=== PATIENT | female | born 1985 | race African-American/Black ===

== ENCOUNTER 2018-03-07 14:25 | Emergency (ER) | payer BC ==
[~2018-03-07] VITALS: Ht 167.6 cm; Wt 82.4 kg
[2018-03-07 14:25] VITALS: BP 161/82
[2018-03-07] MEDS ORDERED: SULF1TAB24 PO (14:52)
[2018-03-07] MEDS ORDERED: SMZ/TMP 800/160MG TABLET. PO ONE (15:00)
[2018-03-07] MEDS ORDERED: CLINDAMYCIN HCL 150 MG CAPSULE PO ONE (15:00)
--- NOTE | 2018-03-07 15:03 | ED.ADGEN ---
Past History Past Medical History: Diabetes Past Surgical History: No Surgical History Alcohol Use: None Drug Use: None Adult General Chief Complaint Chief Complaint Skin rash to suprapubic region [facility] HPI Patient is a 32-year-old -[place] female who presents with rash to suprapubic region. Patient states rash began as an ingrown hair 3 days ago. Patient reports tenderness redness to this region. No fever chills, nausea vomiting or sweats. On exam, there is erythematous rash over suprapubic region with induration towards the right inguinal fold that is moderately tender. There is no fluctuance or pointing or drainage. There is no streaking or labial involvement. [] Review of Systems Review of Systems ROS as per HPI All other systems were reviewed and found to be within normal limits, except as documented in this note. Current Medications Current Medications Current Medications Medications (Trade) Dose Ordered Sig/Cecilia Start Time Stop Time Status Last Admin Dose Admin Clindamycin HCl (Cleocin) 300 mg 1X ONCE 03/07/18 15:00 03/07/18 15:00 DC Trimethoprim/ Sulfamethoxazole (Bactrim Ds) 1 tab 1X ONCE 03/07/18 15:00 03/07/18 15:01 UNV Allergies Allergies Allergies Coded Allergies Type Severity Reaction Last Updated Verified No Known Drug Allergies 03/07/18 No Physical Exam Physical Exam Constitutional: Well developed, well nourished, no acute distress, non-toxic appearance. [] HENT: Normocephalic, atraumatic, bilateral external ears normal, oropharynx moist, no oral exudates, nose normal. [] Eyes: PERRLA, EOMI, conjunctiva normal, no discharge. [] Neck: Normal range of motion, no tenderness, supple, no stridor. [] Cardiovascular:Heart rate regular rhythm, no murmur [] Lungs & Thorax: Bilateral breath sounds clear to auscultation [] Skin: ere is erythematous rash over suprapubic region with induration towards the right inguinal fold that is moderately tender. There is no fluctuance or pointing or drainage. There is no streaking or labial involvement. [] Neurologic: Alert and oriented X 3, normal motor function, normal sensory function, no focal deficits noted. [] Psychologic: Affect normal, judgement normal, mood normal. [] Current Patient Data Vital Signs Vital Signs Date Time Temp Pulse Resp B/P (MAP) Pulse Ox O2 Delivery O2 Flow Rate FiO2 03/07/18 14:25 98.3 80 16 100 Room Air EKG EKG [] Radiology/Procedures Radiology/Procedures [] Course & Med Decision Making Course & Med Decision Making Pertinent Labs and Imaging studies reviewed. (See chart for details) [First dose of antibiotics given in the emergency department. Exam consistent with submerge to be cellulitis with early soft tissue abscess. Recommend warm compresses watchful waiting and close follow-up in the emergency department one to 2 days for recheck. Patient instructed to return sooner symptoms worsen. Patient verbalizes understanding agreement discharge instructions.] Final Impression Final Impression [1. Cellulitis of suprapubic region Dragon Disclaimer Dragon Disclaimer This electronic medical record was generated, in whole or in part, using a voice recognition dictation system. LISE BOCANEGRA DO Mar 07, 2018 15:03
== END 2018-03-07 15:00 | disposition home or self-care (01) ==
LOC: ER 14:25
DX: L03.311 Cellulitis of abdominal wall (principal); L02.211 Cutaneous abscess of abdominal wall; E11.9 Type 2 diabetes mellitus without complications
CPT/HCPCS: 99283

== ENCOUNTER 2018-03-10 16:29 | Emergency (ER) | payer BC ==
[~2018-03-10] VITALS: Ht 167.6 cm; Wt 81.6 kg
[~2018-03-10 16:29] MED LIST: SULF1TAB24 PO
[2018-03-10 16:44] VITALS: BP 121/86
--- NOTE | 2018-03-10 17:14 | ED.ADGEN ---
Past History Past Medical History: Diabetes (YUKO YANG MD) Past Surgical History: No Surgical History (YUKO YANG MD) Alcohol Use: None Drug Use: None (YUKO YANG MD) Adult General Chief Complaint Chief Complaint Wound recheck (LISE SERRA DO) [facility] HPI Patient is a 32 year old female who presents with above hx and presenting for wound check. (YUKO YANG MD) HPI Patient is a 32-year-old [place] male who presents for right suprapubic cellulitis/early soft tissue abscess recheck. Patient was seen in the emergency department 3 days ago by this provider and prescribed antibiotics and pain medication. Patient's compliant with treatment. She has been applying warm compresses and reports coalescence and spontaneous drainage of abscess earlier today. Reports decreased redness swelling and pain to the suprapubic region. No fever chills, nausea vomiting and sweats. Patient has also been compliant and resume metformin. No other acute symptoms or complaints. (LISE SERRA DO) Review of Systems Review of Systems Constitutional: Denies fever or chills [] Eyes: Denies change in visual acuity, redness, or eye pain [] HENT: Denies nasal congestion or sore throat [] Respiratory: Denies cough or shortness of breath [] Cardiovascular: No additional information not addressed in HPI [] GI: Denies abdominal pain, nausea, vomiting, bloody stools or diarrhea [] : Denies dysuria or hematuria [] Musculoskeletal: Denies back pain or joint pain [] Integument: Denies rash or skin lesions [] Neurologic: Denies headache, focal weakness or sensory changes [] Endocrine: Denies polyuria or polydipsia [] All other systems were reviewed and found to be within normal limits, except as documented in this note. (YUKO YANG MD) Allergies Allergies Allergies Coded Allergies Type Severity Reaction Last Updated Verified No Known Drug Allergies 03/07/18 No (LISE SERRA DO) Physical Exam Physical Exam Constitutional: Well developed, well nourished, no acute distress, non-toxic appearance. [] HENT: Normocephalic, atraumatic, bilateral external ears normal, oropharynx moist, no oral exudates, nose normal. [] Eyes: PERRLA, EOMI, conjunctiva normal, no discharge. [] Neck: Normal range of motion, no tenderness, supple, no stridor. [] Cardiovascular:Heart rate regular rhythm, no murmur [] Lungs & Thorax: Bilateral breath sounds clear to auscultation [] Abdomen: Bowel sounds normal, soft, no tenderness, no masses, no pulsatile masses. [] Skin: Warm, dry, no erythema, no rash. [] Back: No tenderness, no CVA tenderness. [] Extremities: No tenderness, no cyanosis, no clubbing, ROM intact, no edema. [] Neurologic: Alert and oriented X 3, normal motor function, normal sensory function, no focal deficits noted. [] Psychologic: Affect normal, judgement normal, mood normal. [] (YUKO YANG MD) Physical Exam Vital signs: Reviewed Gen: No acute distress. HEENT: Normocephalic/atraumatic, using good shape and position, nose midline, mouth, moist mucous membranes. Neck: Normal range of motion. Lungs: Respirations nonlabored, breath sounds clear. Skin: Suprapubic cellulitis not involving labia, smal deroofed abscess without active drainage and only residual induration. No fluctuance appreciated. No streaking cellulitis. (LISE SERRA DO) Current Patient Data Vital Signs Vital Signs Date Time Temp Pulse Resp B/P (MAP) Pulse Ox O2 Delivery O2 Flow Rate FiO2 03/10/18 16:44 98.3 79 18 96 Room Air (LISE SERRA DO) EKG EKG [] (YUKO YANG MD) Radiology/Procedures Radiology/Procedures [] (YUKO YANG MD) Course & Med Decision Making Course & Med Decision Making Pertinent Labs and Imaging studies reviewed. (See chart for details) [] (YUKO YANG MD) Course & Med Decision Making Patient's cellulitis and early soft tissue abscess markedly improved from exam earlier this week with superficial abscess draining spontaneously. Recommend continued antibiotics ibuprofen with PCP follow-up. Return precautions reviewed. Patient verbalizes understanding and agreement discharge instructions prior to departure. (LISE SERRA DO) Final Impression Final Impression Did not see this pt. See Dr. Serra note. [] (YUKO YANG MD) Final Impression #1 encounter for wound recheck (LISE SERRA DO) Dragon Disclaimer Dragon Disclaimer This electronic medical record was generated, in whole or in part, using a voice recognition dictation system. (YUKO YANG MD) YUKO YANG MD Mar 10, 2018 17:14 LISE SERRA DO Mar 10, 2018 17:29
== END 2018-03-10 17:20 | disposition home or self-care (01) ==
LOC: ER 16:29
DX: Z48.01 Encounter for change or removal of surgical wound dressing (principal); L03.311 Cellulitis of abdominal wall; E11.9 Type 2 diabetes mellitus without complications
CPT/HCPCS: 99281

== ENCOUNTER → 2018-03-30 | Outpatient (CLI) | payer BC ==
[2018-03-10 16:44] VITALS: BP 121/86
[2018-03-30 15:38] LABS: BASO % 1 % (0-3); EOS # 0.1 x10^3/uL (0.0-0.7); EOS % 2 % (0-3); HEMATOCRIT 44.2 % (36.0-47.0); HEMOGLOBIN 14.9 g/dL (12.0-15.5); LYMPH # 2.2 x10^3/uL (1.0-4.8); LYMPH % 46 % (24-48); MEAN CORPUSCULAR HEMOGLOBIN 31 pg (25-35); MEAN CORPUSCULAR HGB CONC 34 g/dL (31-37); MEAN CORPUSCULAR VOLUME 90 fL (79-100); MONO # 0.3 x10^3/uL (0.0-1.1); MONO % 6 % (0-9); NEUT # 2.2 x10^3uL (1.8-7.7); NEUT % 45 % (31-73); PLATELET COUNT 196 x10^3/uL (140-400); RED BLOOD COUNT 4.89 x10^6/uL (3.50-5.40); RED CELL DISTRIBUTION WIDTH 12.9 % (11.5-14.5); WHITE BLOOD COUNT 4.9 x10^3/uL (4.0-11.0)
[2018-03-30 15:46] LABS: CREATININE 0.6 mg/dL (0.6-1.0); POTASSIUM 4.1 mmol/L (3.5-5.1); TOTAL BILIRUBIN 0.3 mg/dL (0.2-1.0)
[2018-03-31 02:08] LABS: HEMOGLOBIN A1C 13.8 % (4.8-5.6)
== END | disposition home or self-care (01) ==
LOC: LAB 15:05
PROVIDERS: ATTEND Family Medicine
DX: E11.9 Type 2 diabetes mellitus without complications (principal)
CPT/HCPCS: 36415; 80053; 80061; 83036; 85025

== ENCOUNTER → 2018-06-08 | Outpatient (CLI) | payer BC ==
--- NOTE | 2018-06-08 13:04 | RAD ---
DATE: 06/08/2018 EXAM: MAMMO GRISELDA SYDNEE AQUINO, BREAST RIGHT HISTORY: Right breast lump COMPARISON: None available This study was interpreted with the benefit of Computerized Aided Detection (CAD). Breast Density: HETERO The breast parenchyma is heterogenously dense, which could reduce sensitivity of mammography. Breast parenchyma level C. FINDINGS: 2-D and 3-D tomosynthesis imaging was performed in CC and MLO projections. There is a 6 cm smooth retroareolar mass on the right corresponding to the area of palpable concern. No left breast mass is seen. Arterial calcifications are present in both breasts. No suspicious microcalcifications are evident. Right breast ultrasound, 06/08/2018: A targeted ultrasound exam of the right breast was performed in the retroareolar region. Centered at the 6:00 retroareolar location there is a 4.1 x 9.3 x 2.6 cm smooth mass. It is predominantly hypoechoic in a heterogeneous pattern. No internal vascularity is seen. There is mild vascularity along its rim. This may represent a complex fluid collection or a hypovascular solid mass. No other abnormality is seen in this region. IMPRESSION: Large right retroareolar mass as described above. Ultrasound-guided aspiration/biopsy is suggested for further evaluation. Note: The patient was notified of our recommendation for biopsy by the dairy manufacturing technologist at the time of the exam. She will follow-up with the ordering provider. BI-RADS CATEGORY: 4 SUSPICIOUS ABNORMALITY- BIOPSY SHOULD BE CONSIDERED RECOMMENDED FOLLOW-UP: BIO BIOPSY RECOMMENDED PQRS compliance statement: Patient information was entered into a reminder system with a target due date for the next mammogram. Mammography is a sensitive method for finding small breast cancers, but it does not detect them all and is not a substitute for careful clinical examination. A negative mammogram does not negate a clinically suspicious finding and should not result in delay in biopsying a clinically suspicious abnormality. "Our facility is accredited by the [employer] Mammography Program."
== END | disposition home or self-care (01) ==
LOC: MAMMO 10:42
PROVIDERS: ATTEND Family Medicine
DX: N63.13 Unspecified lump in the right breast, lower outer quadrant (principal)
CPT/HCPCS: 76641; 77066; G0279; 77062

== ENCOUNTER 2019-03-07 12:56 | Emergency (ER) | payer BC ==
[~2019-03-07] VITALS: Ht 167.6 cm; Wt 81.6 kg
[2019-03-07 14:14] LABS: INFLUENZA A PATIENT NEGATIVE (NEGATIVE); INFLUENZA B PATIENT POSITIVE (NEGATIVE)
[2019-03-07] MEDS ORDERED: ACETAMINOPHEN 500 MG TABLET PO ONE (14:45)
[2019-03-07 15:00] LABS: BILIRUBIN,URINE NEG (NEG); CLARITY,URINE CLEAR; COLOR,URINE YELLOW; GLUCOSE,URINE 500 mg/dL (NEG)
[2019-03-07 15:01] LABS: BACTERIA,URINE FEW /HPF (0-FEW); NITRITE,URINE NEG (NEG); SQUAMOUS EPITHELIAL CELL,UR MANY /LPF
--- NOTE | 2019-03-07 15:01 | RAD ---
EXAM: Chest, 2 views. HISTORY: Cough. COMPARISON: None. FINDINGS: 2 views of the chest are obtained. There is no infiltrate, pleural effusion or pneumothorax. The heart is normal in size. IMPRESSION: No acute pulmonary finding. Electronically signed by: Violeta Simmons MD (03/07/2019 2:58 PM) [place] [id number]
[2019-03-07] MEDS ORDERED: GUAI120L35 PO (15:28)
[2019-03-07] MEDS ORDERED: OSEL75CA PO (15:28)
--- NOTE | 2019-03-07 15:28 | PHYS DOC ---
Past History Past Medical History: Diabetes Past Surgical History: No Surgical History Alcohol Use: None Drug Use: None Adult General Chief Complaint Chief Complaint: COUGH HPI HPI Patient is a 33-year-old female who presents with complaint of cough, congestion, body aches and chills as well as fever for the last couple of days. Patient is also had some mild discomfort with urination. She denies any chest pain or shortness of breath. Patient states that cough has not been productive of sputum.[] Review of Systems Review of Systems Constitutional: Positive fever and chills [] Respiratory: Positive cough without shortness of breath [] Cardiovascular: No additional information not addressed in HPI [] GI: Denies abdominal pain, nausea, vomiting or diarrhea [] Integument: Denies rash or skin lesions [] Current Medications Current Medications Current Medications Medications (Trade) Dose Ordered Sig/Cecilia Start Time Stop Time Status Last Admin Dose Admin Acetaminophen (Tylenol) 1,000 mg 1X ONCE 03/07/19 14:45 03/07/19 14:46 DC 03/07/19 14:15 1,000 MG Allergies Allergies Allergies Coded Allergies Type Severity Reaction Last Updated Verified No Known Drug Allergies 03/07/19 No Physical Exam Physical Exam Constitutional: Well developed, well nourished, no acute distress, non-toxic appearance. [] HENT: Normocephalic, atraumatic, bilateral external ears normal, pharyngeal erythema without exudates, nose normal. [] Cardiovascular: Regular rate and rhythm[] Lungs & Thorax: Bilateral breath sounds clear to auscultation [] Extremities: No tenderness, no cyanosis, no clubbing, ROM intact, no edema. [] Neurologic: Alert and oriented X 3, no focal deficits noted. [] Current Patient Data Vital Signs Vital Signs Date Time Temp Pulse Resp B/P (MAP) Pulse Ox O2 Delivery O2 Flow Rate FiO2 03/07/19 15:02 100.8 03/07/19 13:46 100 18 98 Room Air Lab Results Laboratory Tests Test 03/07/19 13:42 03/07/19 14:15 Glucose (Fingerstick) 281 mg/dL (70-99) H Influenza Type A (Rapid) Negative (NEGATIVE) Influenza Type B (Rapid) Positive (NEGATIVE) Urine Collection Type Unknown Urine Color Yellow Urine Clarity Clear Urine pH 6.5 Urine Specific [place] 1.020 Urine Protein 30 mg/dl (NEG-TRACE) Urine Glucose (UA) 500 mg/dL (NEG) Urine Ketones (Stick) >=160 mg/dL (NEG) Urine Blood Neg (NEG) Urine Nitrite Neg (NEG) Urine Bilirubin Neg (NEG) Urine Urobilinogen Dipstick 4.0 mg/dL (0.2 mg/dL) Urine Leukocyte Esterase Neg (NEG) Urine RBC 1-2 /HPF (0-2) Urine WBC 1-4 /HPF (0-4) Urine Squamous Epithelial Cells Many /LPF Urine Bacteria Few /HPF (0-FEW) EKG EKG [] Radiology/Procedures Radiology/Procedures [] Course & Med Decision Making Course & Med Decision Making Pertinent Labs and Imaging studies reviewed. (See chart for details) [] Dragon Disclaimer Dragon Disclaimer This electronic medical record was generated, in whole or in part, using a voice recognition dictation system. Departure Departure: Impression: Primary Impression: Influenza B Disposition: 01 HOME, SELF-CARE Condition: STABLE Referrals: NICOLE PANDEY MD (PCP) Patient Instructions: Influenza, Adult Scripts Oseltamivir Phosphate (TAMIFLU) 75 Mg Capsule 1 CAP PO BID for flu, #10 CAP Prov: SEBASTIAN MAHONEY Jr. DO 03/07/19 Guaifenesin/Codeine Phosphate (Codeine-Guaifen 10-100 mg/5 ml) 120 Ml Liquid 5 ML PO PRN Q6HRS PRN for cough and congestion MDD 20 Milliliter(s) for 6 Days, #120 ML 0 Refills Prov: SEBASTIAN MAHONEY Jr. DO 03/07/19 SEBASTIAN MAHONEY Jr. DO Mar 07, 2019 15:28
[2019-03-07 15:40] VITALS: BP 116/79
== END 2019-03-07 15:40 | disposition home or self-care (01) ==
LOC: ER 12:56
DX: J10.1 Influenza due to other identified influenza virus with other respiratory manifestations (principal); E11.9 Type 2 diabetes mellitus without complications
CPT/HCPCS: 71046; 81001; 82947; 87804; 99285

== ENCOUNTER 2019-05-28 16:38 | Emergency (ER) | payer BC ==
[~2019-05-28] VITALS: Ht 167.6 cm; Wt 81.2 kg
[2019-05-28 16:38] VITALS: BP 158/80
[~2019-05-28 16:38] MED LIST changes: +GUAI120L35 PO; +OSEL75CA PO
--- NOTE | 2019-05-28 17:57 | RAD ---
Chest, PA and Lateral: Technique: PA and lateral views of the chest were obtained. History: Cough, fever. Comparison: 12:30 10/26/2018. Findings: The heart and pulmonary vasculature appear within normal limits. Mild bibasilar lung airspace opacities likely atelectasis or infiltrates.. The pleural margins are clear. Impression: Mild bibasilar lung airspace opacities likely atelectasis or infiltrates.. Electronically signed by: Spencer Fuentes MD (05/28/2019 5:54 PM) [id number]
--- NOTE | 2019-05-28 18:06 | PHYS DOC ---
Past History Past Medical History: Diabetes (SEBASTIAN MAHONEY Jr., DO) Past Surgical History: No Surgical History (SEBASTIAN MAHONEY Jr., DO) Alcohol Use: None Drug Use: None (SEBASTIAN MAHONEY Jr., DO) Adult General Chief Complaint Chief Complaint: Neck Pain [facility] HPI Patient is a 33-year-old female who presents with complaint of needing to be tested for Coronavirus after being seen at urgent care and them telling her that she needed to come here to be tested. Patient states that she needs to know if she needs to be placed on a 14 day quarantine for work. She admits to a sore throat and has had a mild cough. She also complains of a lump at the side of her throat. Patient found to be febrile here in the emergency room and was not aware of having a fever.[] (SEBASTIAN MAHONEY Jr., DO) Review of Systems Review of Systems Constitutional: Positive fever without chills [] Eyes: Denies change in visual acuity, redness, or eye pain [] HENT: Positive sore throat [] Respiratory: Positive dry cough without shortness of breath [] Cardiovascular: No additional information not addressed in HPI [] Integument: Denies rash or skin lesions [] (SEBASTIAN MAHONEY Jr., DO) Allergies Allergies Allergies Coded Allergies Type Severity Reaction Last Updated Verified No Known Drug Allergies 03/07/19 No (SEBASTIAN MAHONEY Jr., DO) Physical Exam Physical Exam Constitutional: Well developed, well nourished, no acute distress, non-toxic appearance. [] HENT: Normocephalic, atraumatic, bilateral external ears normal, oropharynx moist, pharyngeal erythema without exudates is noted. [] Neck: Normal range of motion, supple with significant right sided lymphadenopathy. [] Cardiovascular: Regular rate and rhythm[] Lungs & Thorax: Bilateral breath sounds clear to auscultation [] Skin: Warm, dry, no erythema, no rash. [] (SEBASTIAN MAHONEY Jr., DO) Current Patient Data Vital Signs Vital Signs Date Time Temp Pulse Resp B/P (MAP) Pulse Ox O2 Delivery O2 Flow Rate FiO2 05/28/19 16:38 100.4 91 20 158/80 (106) 97 Room Air Lab Results Laboratory Tests Test 05/28/19 17:36 Group A Streptococcus Rapid Negative (NEGATIVE) (SEBASTIAN MAHONEY Jr., DO) EKG EKG [] (SEBASTIAN MAHONEY Jr., DO) Radiology/Procedures Radiology/Procedures [] Impressions: PROCEDURE: CHEST PA & LATERAL Chest, PA and Lateral: Technique: PA and lateral views of the chest were obtained. History: Cough, fever. Comparison: 12:10/26/2018. Findings: The heart and pulmonary vasculature appear within normal limits. Mild bibasilar lung airspace opacities likely atelectasis or infiltrates.. The pleural margins are clear. Impression: Mild bibasilar lung airspace opacities likely atelectasis or infiltrates.. Electronically signed by: Spencer Fuentes MD (05/28/2019 5:54 PM) [id number] (SEBASTIAN MAHONEY Jr., DO) Course & Med Decision Making Course & Med Decision Making Pertinent Labs and Imaging studies reviewed. (See chart for details) Patient moved to room upon arrival was evaluated by your medical staff after which a chest x-ray has been ordered as well as swab sent for strep, influenza and respiratory virus panel. At this time, workup is pending and patient is being signed out to the oncoming ER physician. (SEBASTIAN MAHONEY Jr., DO) Course & Med Decision Making [place] [id number] IMAGING REPORT Signed PATIENT: LEN GILLILAND ACCOUNT: [id number] : 1985 LOCATION: ER AGE: 33 SEX: F EXAM STATUS: REG ER ORD. PHYSICIAN: SEBASTIAN MAHONEY Jr., DO REASON: cough and fever PROCEDURE: CHEST PA & LATERAL Chest, PA and Lateral: Technique: PA and lateral views of the chest were obtained. History: Cough, fever. Comparison: 12:10/26/2018. Findings: The heart and pulmonary vasculature appear within normal limits. Mild bibasilar lung airspace opacities likely atelectasis or infiltrates.. The pleural margins are clear. Impression: Mild bibasilar lung airspace opacities likely atelectasis or infiltrates.. Electronically signed by: Spencer Fuentes MD (05/28/2019 5:54 PM) [id number] DICTATED AND SIGNED BY: SPENCER FUENTES MD DATE: 05/28/19 3209 CC: SEBASTIAN MAHONEY Jr. DO; NICOLE PANDEY MD ~ Review above CXR- Gargle with Listerine 4 times a day. Take Tylenol or ibuprofen for pain. Or discomfort. Follow-up primary care.. Return if any concerns. Follow-up pending cultures. Self isolated if you have a fever or direct contact with CO-19 confirmed contact. Follow CDC guidelines for CO-19. If adenopathy persist consider biopsy. Follow-up primary care. Concerns. Impression: 1. Cervical adenopathy 2. Viral pharyngitis 3. Viral syndrome (YUKO YANG MD) Dragon Disclaimer Dragon Disclaimer This electronic medical record was generated, in whole or in part, using a voice recognition dictation system. (SEBASTIAN MAHONEY Jr. DO) Departure Departure: Disposition: HOME/RESIDENCE PRIOR TO ADM Condition: STABLE Referrals: NICOLE PANDEY MD (PCP) Dragon Disclaimer This chart was dictated in whole or in part using Voice Recognition software in a busy, high-work load, and often noisy Emergency Department environment. It may contain unintended and wholly unrecognized errors or omissions. (YUKO YANG MD) Dragon Disclaimer This chart was dictated in whole or in part using Voice Recognition software in a busy, high-work load, and often noisy Emergency Department environment. It may contain unintended and wholly unrecognized errors or omissions. (YUKO YANG MD) Dragon Disclaimer This chart was dictated in whole or in part using Voice Recognition software in a busy, high-work load, and often noisy Emergency Department environment. It may contain unintended and wholly unrecognized errors or omissions. (YUKO YANG MD) SEBASTIAN MAHONEY Jr., DO May 28, 2019 18:06 YUKO YANG MD May 28, 2019 18:29
[2019-05-28 18:20] LABS: INFLUENZA A PATIENT NEGATIVE (NEGATIVE); INFLUENZA B PATIENT NEGATIVE (NEGATIVE)
== END 2019-05-28 18:47 | disposition home or self-care (01) ==
LOC: ER 16:38
DX: R59.0 Localized enlarged lymph nodes (principal); B34.9 Viral infection, unspecified; J02.8 Acute pharyngitis due to other specified organisms; E11.9 Type 2 diabetes mellitus without complications
CPT/HCPCS: 36415; 71046; 87070; 87804; 87880; 99284

== ENCOUNTER 2019-06-14 10:42 | Emergency (ER) | payer BC ==
[~2019-06-14] VITALS: Ht 167.6 cm; Wt 81.2 kg
[2019-06-14] MEDS ORDERED: IV NORMAL SALINE 1,000ML 1,000 ML IV ONE (11:00)
[2019-06-14] MEDS ORDERED: ATOR20TA58 PO (11:18)
[2019-06-14] MEDS ORDERED: LISI-338 PO (11:18)
--- NOTE | 2019-06-14 11:20 | RAD ---
AP chest. HISTORY: Short of breath AP view was taken of the chest. Lungs are free of infiltrates. Heart is normal in size. There is no effusion. IMPRESSION: 1. No acute infiltrates. Electronically signed by: Johnie Lyons MD (06/14/2019 11:17 AM) [id number]
[2019-06-14 11:24] LABS: BASO % 0 % (0-3); EOS # 0.1 x10^3/uL (0.0-0.7); EOS % 1 % (0-3); HEMATOCRIT 36.8 % (36.0-47.0); HEMOGLOBIN 12.3 g/dL (12.0-15.5); LYMPH # 1.4 x10^3/uL (1.0-4.8); LYMPH % 25 % (24-48); MEAN CORPUSCULAR HEMOGLOBIN 30 pg (25-35); MEAN CORPUSCULAR HGB CONC 33 g/dL (31-37); MEAN CORPUSCULAR VOLUME 90 fL (79-100); MONO # 0.5 x10^3/uL (0.0-1.1); MONO % 10 % (0-9); NEUT # 3.5 x10^3uL (1.8-7.7); NEUT % 64 % (31-73); PLATELET COUNT 271 x10^3/uL (140-400); RED BLOOD COUNT 4.11 x10^6/uL (3.50-5.40); RED CELL DISTRIBUTION WIDTH 12.5 % (11.5-14.5); WHITE BLOOD COUNT 5.6 x10^3/uL (4.0-11.0)
[2019-06-14 11:33] LABS: CALCIUM 8.7 mg/dL (8.5-10.1); CREATININE 0.6 mg/dL (0.6-1.0); GFR 141.1; POTASSIUM 4.8 mmol/L (3.5-5.1)
[2019-06-14 11:39] LABS: ALBUMIN 2.8 g/dL (3.4-5.0); ALBUMIN/GLOBULIN RATIO 0.7 (1.0-1.7); TOTAL BILIRUBIN 0.2 mg/dL (0.2-1.0); TOTAL PROTEIN 6.7 g/dL (6.4-8.2)
[2019-06-14 11:45] LABS: INFLUENZA A PATIENT NEGATIVE (NEGATIVE); INFLUENZA B PATIENT NEGATIVE (NEGATIVE)
--- NOTE | 2019-06-14 12:17 | PHYS DOC ---
Past History Past Medical History: Diabetes, High Cholesterol, Hypertension, UTI Past Surgical History: No Surgical History Alcohol Use: None Drug Use: None General Adult EDM: Chief Complaint: SHORTNESS OF BREATH HPI: HPI: 33-year-old female presents emergency room with cough, body aches, fatigue. She has had some level of symptoms for about 2 weeks. She has been self quarantine at home for about 14 days. She did not go to work today, but was very fatigued and felt more short of breath. She has not been tested for coronavirus. She also had some chills last night but no measured fever. She has no known contacts with coronavirus. Review of Systems: Review of Systems: Constitutional: Chills, body aches Eyes: Denies change in visual acuity HENT: Denies nasal congestion or sore throat Respiratory: Cough with shortness of breath Cardiovascular: Denies chest pain or edema GI: Denies abdominal pain, nausea, vomiting, bloody stools or diarrhea : Denies dysuria Musculoskeletal: Denies back pain or joint pain Integument: Denies rash Neurologic: Denies headache, focal weakness or sensory changes Endocrine: Denies polyuria or polydipsia Lymphatic: Denies swollen glands Psychiatric: Denies depression or anxiety Heart Score: Risk Factors: Risk Factors: DM, Current or recent (<one month) smoker, HTN, HLP, family history of CAD, obesity. Risk Scores: Score 0 - 3: 2.5% MACE over next 6 weeks - Discharge Home Score 4 - 6: 20.3% MACE over next 6 weeks - Admit for Clinical Observation Score 7 - 10: 72.7% MACE over next 6 weeks - Early Invasive Strategies Current Medications: Current Meds: Current Medications Medications (Trade) Dose Ordered Sig/Cecilia Start Time Stop Time Status Last Admin Dose Admin Sodium Chloride 1,000 ml @ 1,000 mls/hr 1X ONCE 06/14/19 11:00 06/14/19 12:00 DC 06/14/19 11:10 1,000 MLS/HR Allergies: Allergies: Allergies Coded Allergies Type Severity Reaction Last Updated Verified No Known Drug Allergies 03/07/19 No Physical Exam: PE: Constitutional: Well developed, well nourished, no acute distress, non-toxic ap pearance. [] HENT: Normocephalic, atraumatic, bilateral external ears normal, oropharynx moist, no oral exudates, nose normal. [] Eyes: PERRLA, EOMI, conjunctiva normal, no discharge. [] Neck: Normal range of motion, no tenderness, supple, no stridor. [] Cardiovascular:Heart rate regular rhythm, no murmur [] Lungs & Thorax: Bilateral breath sounds clear to auscultation [] Abdomen: Bowel sounds normal, soft, no tenderness, no masses, no pulsatile masses. [] Skin: Warm, dry, no erythema, no rash. [] Back: No tenderness, no CVA tenderness. [] Extremities: No tenderness, no cyanosis, no clubbing, ROM intact, no edema. [] Neurologic: Alert and oriented X 3, normal motor function, normal sensory function, no focal deficits noted. [] Psychologic: Affect normal, judgement normal, mood concerned. [] Current Patient Data: Labs: Laboratory Tests Test 06/14/19 11:01 White Blood Count 5.6 x10^3/uL (4.0-11.0) Red Blood Count 4.11 x10^6/uL (3.50-5.40) Hemoglobin 12.3 g/dL (12.0-15.5) Hematocrit 36.8 % (36.0-47.0) Mean Corpuscular Volume 90 fL (79-100) Mean Corpuscular Hemoglobin 30 pg (25-35) Mean Corpuscular Hemoglobin Concent 33 g/dL (31-37) Red Cell Distribution Width 12.5 % (11.5-14.5) Platelet Count 271 x10^3/uL (140-400) Neutrophils (%) (Auto) 64 % (31-73) Lymphocytes (%) (Auto) 25 % (24-48) Monocytes (%) (Auto) 10 % (0-9) H Eosinophils (%) (Auto) 1 % (0-3) Basophils (%) (Auto) 0 % (0-3) Neutrophils # (Auto) 3.5 x10^3uL (1.8-7.7) Lymphocytes # (Auto) 1.4 x10^3/uL (1.0-4.8) Monocytes # (Auto) 0.5 x10^3/uL (0.0-1.1) Eosinophils # (Auto) 0.1 x10^3/uL (0.0-0.7) Basophils # (Auto) 0.0 x10^3/uL (0.0-0.2) Sodium Level 137 mmol/L (136-145) Potassium Level 4.8 mmol/L (3.5-5.1) Chloride Level 102 mmol/L (98-107) Carbon Dioxide Level 26 mmol/L (21-32) Anion Gap 9 (6-14) Blood Urea Nitrogen 16 mg/dL (7-20) Creatinine 0.6 mg/dL (0.6-1.0) Estimated GFR (Cockcroft-Gault) 141.1 BUN/Creatinine Ratio 27 (6-20) H Glucose Level 167 mg/dL (70-99) H Lactic Acid Level 0.9 mmol/L (0.4-2.0) Calcium Level 8.7 mg/dL (8.5-10.1) Total Bilirubin 0.2 mg/dL (0.2-1.0) Aspartate Amino Transferase (AST) 21 U/L (15-37) Alanine Aminotransferase (ALT) 46 U/L (14-59) Alkaline Phosphatase 116 U/L (46-116) Total Protein 6.7 g/dL (6.4-8.2) Albumin 2.8 g/dL (3.4-5.0) L Albumin/Globulin Ratio 0.7 (1.0-1.7) L Influenza Type A (Rapid) Negative (NEGATIVE) Influenza Type B (Rapid) Negative (NEGATIVE) Group A Streptococcus Rapid Negative (NEGATIVE) Vital Signs: Vital Signs Date Time Temp Pulse Resp B/P (MAP) Pulse Ox O2 Delivery O2 Flow Rate FiO2 06/14/19 10:42 98.4 84 22 164/96 (118) Room Air EKG: EKG: [] Radiology/Procedures: Radiology/Procedures: [] Impressions: AP chest. HISTORY: Short of breath AP view was taken of the chest. Lungs are free of infiltrates. Heart is normal in size. There is no effusion. IMPRESSION: 1. No acute infiltrates. Electronically signed by: Johnie Adams MD (06/14/2019 11:17 AM) [id number] DICTATED AND SIGNED BY: JOHNIE ADAMS MD DATE: 06/14/19 1117 CC: LISE FRASER DO; NICOLE PANDEY MD ~ Course & Med Decision Making: Course & Med Decision Making Pertinent Labs and Imaging studies reviewed. (See chart for details) The patient is also a diabetic with recent diagnosis and new medications. Some of her symptoms of nausea could be related to her medications. Her doctor advised that she stop all of her medications. She is not taking anything today and her blood pressure is elevated. She has an elevated blood sugar but it is below 200. I advised that she restart her lisinopril and discuss her other medications with her doctor. We did test her for COVID 19 today. Results will be available in a couple of days. I have advised she continue to quarantine herself at home pending these results and feeling better. She does not meet admission criteria. She is stable for discharge at this time. If her condition worsens she will return to the hospital. [] Leann Disclaimer: Dragon Disclaimer: This electronic medical record was generated, in whole or in part, using a voice recognition dictation system. Departure Departure: Impression: Primary Impression: COVID-19 Disposition: HOME, SELF-CARE Condition: STABLE Referrals: NICOLE PANDEY MD (PCP) Patient Instructions: Viral Syndrome Scripts Ondansetron (ONDANSETRON ODT) 4 Mg Tab.rapdis 1 TAB PO PRN Q6-8HRS PRN for VOMITING, #16 TAB Prov: LISE FRASER DO 06/14/19 LISE FRASER DO Jun 14, 2019 12:17
[2019-06-14] MEDS ORDERED: ONDA4TAB12 PO (12:41)
[2019-06-14 12:49] VITALS: BP 179/106
--- NOTE | 2019-06-14 17:50 | EKG ---
[address] [address] Test Date: 2019-06-14 Test Time: 10:46:35 Pat Name: LEN GILLILAND Department: Room: Gender: F Protein Specialist: : [id number] Requested By: LISE FRASER Order Number: [id number] Reading MD: Anibal Pisano MD Measurements Intervals [place] Rate: 74 P: 24 AL: 138 QRS: 40 QRSD: 74 T: 25 QT: 364 QTc: 404 Interpretive Statements SINUS RHYTHM Electronically Signed On 06-15-2019 9:42:38 CDT by Anibal Pisano MD
== END 2019-06-14 12:50 | disposition home or self-care (01) ==
LOC: ER 10:42
DX: U07.1 COVID-19 (principal); E11.9 Type 2 diabetes mellitus without complications; E78.00 Pure hypercholesterolemia, unspecified; I10 Essential (primary) hypertension; Z87.440 Personal history of urinary (tract) infections
CPT/HCPCS: 36415; 71045; 80053; 83605; 85025; 87040; 87070; 87635; 87804; 87880; 93005; 99285-25; J7030

== ENCOUNTER 2020-04-06 20:02 | Emergency (ER) | payer BC ==
[~2020-04-06] VITALS: Ht 167.6 cm; Wt 81.9 kg
[~2020-04-06 20:02] MED LIST changes: +ATOR20TA58 PO; +LISI-517 PO; +ONDA4TAB12 PO
[2020-04-06 20:19] VITALS: BP 159/90
--- NOTE | 2020-04-06 20:19 | PHYS DOC ---
Past History Past Medical History: Diabetes, High Cholesterol, Hypertension, UTI (DEVAUGHN VAUGHN APRN) Past Surgical History: No Surgical History (DEVAUGHN VAUGHN APRN) Alcohol Use: None Drug Use: None (DEVAUGHN VAUGHN APRN) Adult General Chief Complaint Chief Complaint: ABSCESS HPI HPI Patient is a 34-year-old female presents to the emergency department complaining of an abscess to her right upper abdomen that has been there for the past 2 days. Patient states earlier today she expressed purulent material from it that was malodorous. Patient states that she has had abscesses in the past and knows that she needs to be on antibiotic. Patient denies any chest pains, shortness of breath, fever, chills, dizziness. Patient denies nausea vomiting diarrhea. Patient denies any other physical complaints or physical concerns. (DEVAUGHN VAUGHN APRN) Review of Systems Review of Systems 14 body systems of review of systems have been reviewed. See HPI for pertinent positives and negative responses, otherwise all other systems are negative, nonpertinent or noncontributory. (DEVAUGHN VAUGHN APRN) Allergies Allergies Allergies Coded Allergies Type Severity Reaction Last Updated Verified No Known Drug Allergies 03/07/19 No (DEVAUGHN VAUGHN APRN) Physical Exam Physical Exam Constitutional: Well developed, well nourished, no acute distress, non-toxic appearance. HENT: Normocephalic, atraumatic, bilateral external ears normal, oropharynx moist, no oral exudates, nose normal. Eyes: PERRLA, EOMI, conjunctiva normal, no discharge. Neck: Normal range of motion, no tenderness, supple, no stridor. Cardiovascular:Heart rate regular rhythm, no murmur Lungs & Thorax: Bilateral breath sounds clear to auscultation Abdomen: Bowel sounds normal, soft, no tenderness, no masses, no pulsatile masses. Skin: Warm, dry, no erythema, no rash. Abscess to right upper quadrant abdomen, with central punctum, fluctuant, induration 4 cm in diameter, no drainage. Back: No tenderness, no CVA tenderness. [] Extremities: No tenderness, no cyanosis, no clubbing, ROM intact, no edema. [] Neurologic: Alert and oriented X 3, normal motor function, normal sensory function, no focal deficits noted. [] Psychologic: Affect normal, judgement normal, mood normal. [] (DEVAUGHN VAUGHN APRN) EKG EKG [] (DEVAUGHN VAUGHN APRN) Radiology/Procedures Radiology/Procedures [] (DEVAUGHN VAUGHN APRN) Heart Score Risk Factors: Risk Factors: DM, Current or recent (<one month) smoker, HTN, HLP, family history of CAD, obesity. Risk Scores: Risk Factors: DM, Current or recent (<one month) smoker, HTN, HLP, family history of CAD, obesity. (DEVAUGHN VAUGHN APRN) Course & Med Decision Making Course & Med Decision Making Pertinent Labs and Imaging studies reviewed. (See chart for details) 34-year-old female vital signs reviewed, presents emergency department with abscess to right upper abdomen. Physical exam revealed abscess right upper abdomen, has central punctum scant drainage. Patient denies any allergies to antibiotics, will start on topical mupirocin ointment, p.o. Bactrim DS twice daily x10 days. Patient gave verbal understanding home instructions, antibiotic use, follow-up with primary care, return to ER precautions or concerns, discharged home. (DEVAUGHN VAUGHN APRN) Course & Med Decision Making Did not see or evaluate patient. Discussed patient with [employer] DEAN. Agree with plan and disposition (WEI DASILVA MD) Dragon Disclaimer Dragon Disclaimer This electronic medical record was generated, in whole or in part, using a voice recognition dictation system. (DEVAUGHN VAUGHN APRN) Departure Departure: Impression: Primary Impression: Abscess Disposition: 01 DC HOME SELF CARE/HOMELESS Condition: GOOD Referrals: NICOLE PANDEY MD (PCP) Patient Instructions: Abscess Additional Instructions: Use antibiotics as prescribed, follow-up with your primary care for reoccurring symptoms and reevaluation of your abscess, return to emergency department for worsening symptoms or other concerns. Scripts Mupirocin (MUPIROCIN) 22 Gm Oint...g. 1 BROOKE TP TID for ABSCESS, #22 GM 0 Refills Prov: DEVAUGHN VAUGHN APRN 04/06/20 Sulfamethoxazole/Trimethoprim (BACTRIM DS TABLET) 1 Each Tablet 1 TAB PO BID for ABSCESS for 10 Days, #20 TAB 0 Refills Prov: DEVAUGHN VAUGHN APRN 04/06/20 DEVAUGHN VAUGHN APRN Apr 06, 2020 20:19 WEI DASILVA MD Apr 06, 2020 21:44
[2020-04-06] MEDS ORDERED: MUPI22OI2 TP (20:28)
[2020-04-06] MEDS ORDERED: SULF1TAB24 PO (20:28)
[2020-04-06] MEDS ORDERED: SMZ/TMP 800/160MG TABLET. PO ONE (20:30)
[2020-04-06] MEDS ORDERED: MUPIROCIN 2% TOPICAL OINTMENT 22GM TUBE. TP SCH (21:00)
== END 2020-04-06 20:34 | disposition home or self-care (01) ==
LOC: ER 20:02
DX: L02.211 Cutaneous abscess of abdominal wall (principal); E11.9 Type 2 diabetes mellitus without complications; E78.00 Pure hypercholesterolemia, unspecified; I10 Essential (primary) hypertension; Z87.440 Personal history of urinary (tract) infections
CPT/HCPCS: 99283

== ENCOUNTER 2020-09-15 19:47 | Emergency (ER) | payer OTHER ==
[~2020-09-15] VITALS: Ht 167.6 cm; Wt 81.2 kg
[~2020-09-15 19:47] MED LIST changes: +MUPI22OI2 TP
--- NOTE | 2020-09-15 19:57 | PHYS DOC ---
Past History Past Medical History: Diabetes, High Cholesterol, Hypertension, UTI Past Surgical History: No Surgical History Alcohol Use: None Drug Use: None General Adult HPI: HPI: ".. I got a sore throat.. My sugars are up a little... my blood pressue is up... I have congestion... my ears feel full.. " Patient is a 35 year old female who presents with above hx and multiple complaints. Patient complaining of congestion, nasal drainage, sore throat, malaise, arthralgia, ear stuffiness, and elevated blood sugars. Patient has had previous Covid test have been negative. Patient has not gotten Covid vaccination. And states she is unlikely to do so. Patient does have history of diabetes, hypertension, fibromyalgia, elevated cholesterol and recurrent UTIs. Patient normally follows with Dr. Pandey. Patient denies any recent travel. No specific ill contacts. Patient admits noncompliance with diet and her diabetic meds.. Review of Systems: Review of Systems: Constitutional: Denies fever or chills Eyes: Denies change in visual acuity HENT: Complains nasal congestion and sore throat Respiratory: Denies cough or shortness of breath Cardiovascular: Denies chest pain or edema GI: Denies abdominal pain, nausea, vomiting, bloody stools or diarrhea : Denies dysuria Musculoskeletal: Complains of myalgia and arthralgia Integument: Denies rash Neurologic: Denies headache, focal weakness or sensory changes Endocrine: Denies polyuria or polydipsia Lymphatic: Denies swollen glands Psychiatric: Denies depression or anxiety Family History: Family History: Noncontributory to presentation. Current Medications: Current Meds: See nursing for home meds Allergies: Allergies: Allergies Coded Allergies Type Severity Reaction Last Updated Verified No Known Drug Allergies 03/07/19 No Physical Exam: PE: Constitutional: Well developed, well nourished, no acute distress, non-toxic appearance. [] HENT: Normocephalic, atraumatic, bilateral external ears normal, oropharynx moist, postnasal drainage, mild erythema, no oral exudates, nose swollen turbinates clear rhinorrhea. Fluid behind TMs but no erythema Eyes: PERRLA, EOMI, conjunctiva normal, no discharge. [] Neck: Normal range of motion, no tenderness, supple, no stridor. [] Cardiovascular:Heart rate regular rhythm, no murmur [] Lungs & Thorax: Bilateral breath sounds equal apex few scattered wheezes on auscultation [] Abdomen: Bowel sounds normal, soft, no tenderness, no masses, no pulsatile masses. Obese. Skin: Warm, dry, no erythema, no rash. [] Back: No tenderness, no CVA tenderness. [] Extremities: No tenderness, no cyanosis, no clubbing, ROM intact, no edema. No cording. Neurologic: Alert and oriented X 3, normal motor function, normal sensory function, no focal deficits noted. [] Psychologic: Affect anxious, judgement normal, mood normal. [] EKG: EKG: [] Radiology/Procedures: Radiology/Procedures: [] Heart Score: C/O Chest Pain: N/A Risk Factors: Risk Factors: DM, Current or recent (<one month) smoker, HTN, HLP, family history of CAD, obesity. Risk Scores: Score 0 - 3: 2.5% MACE over next 6 weeks - Discharge Home Score 4 - 6: 20.3% MACE over next 6 weeks - Admit for Clinical Observation Score 7 - 10: 72.7% MACE over next 6 weeks - Early Invasive Strategies Course & Med Decision Making: Course & Med Decision Making Pertinent Labs and Imaging studies reviewed. (See chart for details) Patient strep, flu, Covid both rapid and serum were negative. Suspect viral/allergy symptoms. Take Tylenol and ibuprofen for pain. Follow-up primary care. Recommend get Covid vaccination went over this acute episode. Patient encouraged to maintain regular diet and take your diabetic meds on scheduled basis. It is impossible control blood sugar levels if there is no regular diet and med plan.. Impression: 1. DM 283 2. Viral/allergy syndrome. [] Dragon Disclaimer: Dragon Disclaimer: This electronic medical record was generated, in whole or in part, using a voice recognition dictation system. Departure Departure: Referrals: NICOLE PANDEY MD (PCP) YUKO YANG MD Sep 15, 2020 19:57
[2020-09-15 20:05] VITALS: BP 172/97
[2020-09-15 21:43] LABS: INFLUENZA A PATIENT NEGATIVE (NEGATIVE); INFLUENZA B PATIENT NEGATIVE (NEGATIVE)
[2020-09-15] MEDS ORDERED: ACETAMINOPHEN 500 MG TABLET PO ONE (22:00)
== END 2020-09-15 23:57 | disposition home or self-care (01) ==
LOC: ER 19:47
DX: B34.9 Viral infection, unspecified (principal); E11.9 Type 2 diabetes mellitus without complications; E78.5 Hyperlipidemia, unspecified; I10 Essential (primary) hypertension; Z20.822 Contact with and (suspected) exposure to COVID-19
CPT/HCPCS: 82947; 87070; 87426; 87804; 87880; 99283; C9803; U0003